=== PATIENT | male | born 1950 | race Caucasian/White ===

== ENCOUNTER 2016-09-05 09:52 | Outpatient (CLI) | payer MEDICARE, OTHER | END 2016-09-05 09:53 | disposition critical access hospital (66) | LOC: EMS 09:52 | PROVIDERS: ATTEND Surgery | DX: R51 Headache (principal); M54.2 Cervicalgia; W20.8XXA Other cause of strike by thrown, projected or falling object, initial encounter; Y93.H9 Activity, other involving exterior property and land maintenance, building and construction; Y92.39 Other specified sports and athletic area as the place of occurrence of the external cause | CPT/HCPCS: A0425; A0429 ==

== ENCOUNTER 2016-09-05 10:25 | Emergency (ER) | payer MEDICARE, OTHER ==
[2016-09-05] MEDS ORDERED: IBUPROFEN 400 MG TABLET PO STA (10:35)
[2016-09-05] MEDS ORDERED: IBUPROFEN 400 MG TABLET PO ONE (10:49)
--- NOTE | 2016-09-05 11:12 | ED Physician Documentation ---
History of Present Illness - Stated complaint Stated Complaint: HEAD INJURY - Chief complaint Chief Complaint: Trauma Hd/Nk - Additonal information Additional information: hx from pt 66 male was working on golf course cutting branches with chainsaw a branch fell and hit him on the top of the head momentary LOC mild 1/10 MICHELLE no neck pain no numbness or weakness no blood thinners Review of Systems Ears: denies: Drainage/discharge Nose: denies: Epistaxis GI: denies: Nausea, Vomiting Musculoskeletal: denies: Neck pain Neurologic: reports: Headache, Head injury. denies: Focal weakness, Numbness Endocrine: denies: Easy bruising / bleeding PD PAST MEDICAL HISTORY - Past Medical History Past Medical History: No - Past Surgical History Past Surgical History: No - Allergies Allergies/Adverse Reactions: Allergies Allergy/AdvReac Type Severity Reaction Status Date / Time No Known Drug Allergies Allergy Verified 09/05/16 10:34 - Social History Does the pt smoke?: No Smoking Status: Never smoker Does the pt drink ETOH?: No Does the pt have substance abuse?: No - Immunizations Immunizations are current?: Yes PD ED PE NORMAL - Vitals Vital signs reviewed: Yes - General General: Alert and oriented X 3 - HEENT HEENT: Atraumatic (mild TTP but no lac or hematoma), PERRL, Ears normal (no longoria sign or hemotympanum) - Neck Neck: No bony TTP - Cardiac Cardiac: RRR - Respiratory Respiratory: No respiratory distress, Clear bilaterally - Abdomen Abdomen: Soft - Neuro Neuro: Alert and oriented X 3, 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, No motor deficit, No sensory deficit, Normal speech Results - Vitals Vitals: Vital Signs - 24 hr 09/05/16 10:31 Temperature 36.5 C Heart Rate 58 L Respiratory 18 Rate Blood Pressure 134/84 H O2 Saturation 96 Oxygen O2 Source Room air PD MEDICAL DECISION MAKING - ED course ED course: cleared by NEXUS obs 30 min feeling well do not think imaging indicated d/w pt and family dc with head injury precautions Departure - Departure Disposition: 01 Home, Self Care Clinical Impression: Concussion Qualifiers: Encounter type: initial encounter Loss of consciousness presence/duration: with LOC of 30 min or less Qualified Code(s): S06.0X1A - Concussion with loss of consciousness of 30 minutes or less, initial encounter Condition: Good Instructions: ED Head Injury Closed Sleep Mon Follow-Up: Tara Valles MD [Primary Care Provider] - (to recheck your blood pressure - it was a little high today) Comments: At this point, you have a normal neurologic exam and I do not think the radiation risk of a CT scan is merited I have provided you with head injury precautions which I would like you to review Please stay with another adult who can observe you for the next 24 hr Call your PMD or return to the ED if worse or any new concerns Forms: Activity restrictions
[2016-09-05 11:31] VITALS: BP 132/80
== END 2016-09-05 11:31 | disposition home or self-care (01) ==
LOC: EDUNIT# → ED 10:25
DX: S06.0X1A Concussion with loss of consciousness of 30 minutes or less, initial encounter (principal); W22.8XXA Striking against or struck by other objects, initial encounter; Y93.H2 Activity, gardening and landscaping; Y92.39 Other specified sports and athletic area as the place of occurrence of the external cause
CPT/HCPCS: 99283; A9270

== ENCOUNTER 2020-08-09 13:11 | Outpatient (CLI) | payer MEDICARE, OTHER | END 2020-08-09 13:12 | disposition EMS.NT | LOC: EMS 13:11 | DX: R55 Syncope and collapse (principal) ==